=== PATIENT | female | born 1995 | race Caucasian/White ===

== ENCOUNTER 2018-05-30 11:49 | Emergency (ER) | payer BC ==
[2018-05-30 12:35] VITALS: BP 130/79
--- NOTE | 2018-05-30 12:51 | UC ---
Respiratory Complaint HPI - HPI Summary HPI Summary: 22 year old female with URI Complaint, Cough for one week or more and not improved , b/l redness, crusty this AM. Cough for a week worsened at night. No fever. No SOB. (+) exposure to illness at [facility]. Not improved but not worsened. Had b/l redness in eye and d/c of the eyes 2 dayws ago but today no discharge. No vision changes otherwise. no contacts use. both eyes affected simultaneously. no trauma to eyes. no previous ENT concerns. [ End ] - History of Current Complaint Chief Complaint: UCRespiratory Stated Complaint: COUGH,BILATERAL EYES Time Seen by Provider: 05/30/18 12:42 Hx Obtained From: Patient Hx Last Menstrual Period: 2 weeks Onset/Duration: Gradual Onset Timing: Constant Pain Intensity: 0 Character: Cough: Nonproductive - Allergies/Home Medications Allergies/Adverse Reactions: Allergies Allergy/AdvReac Type Severity Reaction Status Date / Time No Known Allergies Allergy Verified 05/30/18 12:36 Home Medications: Home Medications D-Methorphan/PE/Acetaminophen [Vicks Dayquil Cold & Flu] 2 cap PO BID PRN [History Confirmed 05/30/18] Dm/Acetaminophen/Doxylamine [Vicks Nyquil Cold & Flu N 15-6.25-325 mg] 2 cap PO QPM PRN 05/30/18 [History Confirmed 05/30/18] PMH/Surg Hx/FS Hx/Imm Hx Previously Healthy: Yes Psychological History: Other - adhd Other Psychological History: adhd - Surgical History Surgical History: None - Family History Known Family History: Positive: None - Social History Occupation: Student - [employer] Lives: With Family Alcohol Use: None Substance Use Type: None Smoking Status (MU): Never Smoked Tobacco Review of Systems Constitutional: Fatigue Eyes: Eye Redness ENT: Sore Throat, Ear Ache, Nasal Discharge, Sinus Congestion, Sinus Pain/ Tenderness Respiratory: Cough Is Patient Immunocompromised?: No All Other Systems Reviewed And Are Negative: Yes Physical Exam Triage Information Reviewed: Yes Appearance: Well-Appearing, No Pain Distress, Well-Nourished Vital Signs: Initial Vital Signs Temp 98 F 05/30/18 12:30 Pulse 82 05/30/18 12:30 Resp 20 05/30/18 12:30 BP 130/79 05/30/18 12:30 Pulse Ox 100 05/30/18 12:30 Vital Signs Reviewed: Yes Eye Exam: Normal Eyes: Positive: Other: - mild conjunctival injection. Negative: Conjunctiva Inflamed, Discharge ENT Exam: Normal ENT: Positive: Nasal congestion, Nasal drainage, TM dull, Sinus tenderness Dental Exam: Normal Neck exam: Normal Respiratory Exam: Normal Cardiovascular Exam: Normal Musculoskeletal Exam: Normal Neurological Exam: Normal Psychological Exam: Normal Skin Exam: Normal UC Diagnostic Evaluation - Laboratory O2 Sat by Pulse Oximetry: 100 Respiratory Course/Dx - Course Course Of Treatment: viral in nature. treat with supportive care. if Sx persist or worsen in the next few days can start meds. aware of SE of meds. if any purulent d/c in eyes start drops. aware of SE like C diff - Differential Dx/Diagnosis Differential Diagnosis/HQI/PQRI: Bronchitis, Lower Resp Infection, Sinusitis Provider Diagnoses: URI. Conjunctivitis Discharge - Sign-Out/Discharge Documenting (check all that apply): Patient Departure All imaging exams completed and their final reports reviewed: No Studies - Discharge Plan Condition: Good Disposition: HOME Prescriptions: Amoxicillin/Clavulanate TAB* [Augmentin TAB 875*] 875 mg PO BID 10 Days #20 tab Benzonatate CAP* [Tessalon 100 MG CAP*] 100 mg PO TID PRN #20 cap PRN Reason: Cough Polymyx/Trimethoprim OPTH* [Polytrim OPHTH*] 1 drop BOTH EYES Q3H #1 btl Patient Education Materials: Upper Respiratory Infection (ED), Conjunctivitis ( ED) Referrals: No Primary Care Phys,NOPCP [Primary Care Provider] - If Needed Additional Instructions: VIRAL URI/CONJUNCTIVITIS : IT APPEARS THAT AT THIS TIME YOU HAVE A VIRAL SINUSITIS AND ARE ADVISED TO CONTINUE WITH DECONGESTANTS, FLONASE AND PLEASE ADD THE LIZA MED SINUS RINSE / NETTI POT TO YOUR REGIMEN AND IF YOUR SYMPTOMS WORSEN OVER THE NEXT 3-4 DAYS THEN YOU MAY START THE ANTIBIOTICS - Billing Disposition and Condition Condition: GOOD Disposition: Home
== END 2018-05-30 13:17 | disposition home or self-care (01) ==
LOC: UCCORT 11:49
DX: J06.9 Acute upper respiratory infection, unspecified (principal); H10.9 Unspecified conjunctivitis
CPT/HCPCS: 99202; G0463

== ENCOUNTER 2018-06-24 16:24 | Emergency (ER) | payer BC ==
[2018-06-24 17:15] VITALS: BP 140/89
--- NOTE | 2018-06-24 18:22 | UC ---
Skin Complaint HPI - HPI Summary HPI Summary: 23 y/o female presents to the urgent care c/o a red rash in the palms, feet and around lips for the past 3 days. Pt also has mild sore throat. At the beginning symptoms she had low grade fever, mailase and 1 episode of vomiting. 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 Pt has taking Advil PO to alleviate symptoms. Pt denies fever, toady, URI, chest pain, abdominal pain, N/V/D. Pt is UTD w/ all vaccines for her age. - History of Current Complaint Chief Complaint: UCRespiratory Time Seen by Provider: 06/24/18 18:05 Stated Complaint: SKIN CONCERN HANDS/FEET Hx Obtained From: Patient Hx Last Menstrual Period: today ?: No Onset/Duration: Gradual Onset, Lasting Days - 3 days, Still Present, Worse Since - today Skin Exposure Onset/Duration: Days Ago - 3 days Timing: Constant Onset Severity: Mild Current Severity: Mild Pain Intensity: 0 Pain Scale Used: 0-10 Numeric Location: Diffuse - palms, feet, legs and around lips Character: Pruritus, Redness Aggravating Factor(s): Touch Alleviating Factor(s): OTC Meds Associated Signs & Symptoms: Positive: Vomiting, Fever, Rash. Negative: Difficulty Breathing, Chills, Hoarseness, Throat Tightening, Drainage, Tenderness Related History: Other: - Pt works in a day care - Allergy/Home Medications Allergies/Adverse Reactions: Allergies Allergy/AdvReac Type Severity Reaction Status Date / Time No Known Allergies Allergy Verified 06/24/18 17:09 Home Medications: Home Medications Ibuprofen TAB* [Motrin TAB* 400 MG] 400 mg PO BID PRN 06/24/18 [History Confirmed 06/24/18] Review of Systems Constitutional: Negative Skin: Rash - on palms, feet, legs and around lips w/ red papules and itchiness Eyes: Negative ENT: Sore Throat - mild Respiratory: Negative Cardiovascular: Negative Gastrointestinal: Negative Genitourinary: Negative Motor: Negative Neurovascular: Negative Musculoskeletal: Negative Neurological: Negative Psychological: Negative Is Patient Immunocompromised?: No All Other Systems Reviewed And Are Negative: Yes PMH/Surg Hx/FS Hx/Imm Hx Previously Healthy: Yes - Pt denies PMHX - Surgical History Surgical History: Yes Surgery Procedure, Year, and Place: lip surgery - Family History Known Family History: Positive: Cardiac Disease - Social History Occupation: Employed Full-time Lives: With Family Alcohol Use: None Substance Use Type: None Smoking Status (MU): Never Smoked Tobacco Have You Smoked in the Last Year: No - Immunization History Vaccination Up to Date: Yes Physical Exam - Summary Physical Exam Summary: Vital Signs Reviewed: Yes General: well developed, well nourished female sitting in the examining table w/ o any apparent distress. Eyes: Positive: Conjunctiva Clear - PERRLA, EOMI ENT: Positive: Normal ENT inspection, Hearing grossly normal, Pharynx normal, TMs normal Neck: Positive: Supple, Nontender, No Lymphadenopathy Respiratory: Positive: Chest nontender, Lungs clear, Normal breath sounds Cardiovascular: Positive: RRR, No Murmur, Pulses Normal Abdomen Description: Positive: Nontender, No Organomegaly, Soft. Negative: CVA Tenderness (R), CVA Tenderness (L) Bowel Sounds: Positive: Present Musculoskeletal: Positive: Strength Intact, ROM Intact, No Edema Neurological Exam: Normal Psychological Exam: Normal Skin: Positive: rashes - positive scattered erythematous papules in the palms, feet, posterior legs, around lips, no tenderness to palpation, no drainage, no swelling observed Triage Information Reviewed: Yes Vital Signs: Initial Vital Signs Temp 98.6 F 06/24/18 17:10 Pulse 81 06/24/18 17:10 Resp 22 06/24/18 17:10 BP 140/89 06/24/18 17:10 Pulse Ox 100 06/24/18 17:10 Course/Dx - Course Course Of Treatment: 23 y/o female presents to the urgent care c/o a red rash in the palms, feet and around lips for the past 3 days. Pt also has mild sore throat. At the beginning symptoms she had low grade fever, mailase and 1 episode of vomiting. 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 Pt has taking Advil PO to alleviate symptoms. Pt denies fever, toady, URI, chest pain, abdominal pain, N/V/D. Pt is UTD w/ all vaccines for her age.Hx obtained. Hx obtained, Pt w/ pharyngitis and a scattered erythematous papules in palms and soles on examination. Rapid strep ordered: negative. Pt is febrile. Pt given children's motrin PO for fever. Rx Caladryl topical lotion to alleviate rash and mother advised to continue w/ children's Motrin to control fever and pain. Advised on hand washing to avoid spreading. Pt advised to rest, eat well and avoid strenuous exercise. If symptoms do not improve or worsen advised to return to the urgent care or f/u with [facility] for further evaluation and treatment. Pt understood and agreed.Hx obtained. Hx obtained, Pt w/ pharyngitis and a scattered erythematous papules in palms, legs and soles on examination. Pt Rx Caladryl topical lotion to alleviate rash and Pt advised to continue w/ Advil PO to alleviat symptoms. Advised on hand washing to avoid spreading. Pt advised to rest, eat well and avoid strenuous exercise. If symptoms do not improve or worsen advised to return to the urgent care or f/u with PCP for further evaluation and treatment. Your BP is elevated today. please decrease salt in your diet, monitor BP and if it continues to be elevated please f/u with your PCP for further management. Pt understood and agreed w/ plan of care - Differential Diagnoses - Skin Complaint Differential Diagnoses: Abscess, Cellulitis, Contact Dermatitis, Local Allergic Reaction, Urticaria, Other - hand foot mouth disease - Diagnoses Provider Diagnoses: 1- Hand foot mouth disease. 2- elevated BP w/o Hx of HTN Discharge - Sign-Out/Discharge Documenting (check all that apply): Patient Departure All imaging exams completed and their final reports reviewed: No Studies - Discharge Plan Condition: Stable Disposition: HOME Prescriptions: Calamine/Pramoxine LOTION* [Caladryl LOTION*] 1 applic .SEE ORDER BID #1 btl Patient Education Materials: Hand, Foot, and Mouth Disease (ED) Forms: *School Release Referrals: [facility] [place] [facility]IAN REFERRAL [Outside] - 3 Days Additional Instructions: 1- Please apply Caladryl topical lotion ad directed to alleviate rash . 2-Please take ibuprofen PO q6-8hrs prn as instructed after meals to alleviate pain. Increase fluid intake, eat well, rest and avoid strenuous exercise 3-If symptoms do not improve or worsen please return to the urgent care or f/u with your PCP in 3 days for further evaluation and treatment. - Billing Disposition and Condition Condition: STABLE Disposition: Home
== END 2018-06-24 18:32 | disposition home or self-care (01) ==
LOC: UCCORT 16:24
DX: B08.4 Enteroviral vesicular stomatitis with exanthem (principal); J02.9 Acute pharyngitis, unspecified; R03.0 Elevated blood-pressure reading, without diagnosis of hypertension
CPT/HCPCS: 99212; G0463